=== PATIENT | female | born 1975 | race African-American/Black ===

== ENCOUNTER 2022-02-01 21:00 | Emergency (ER) | payer SELFPAY ==
[~2022-02-01] VITALS: Ht 162.6 cm; Wt 55.0 kg
[2022-02-01] MEDS ORDERED: TETANUS, DIPHTHERIA, PERTUSSIS VAC/PF 0.5ML (>10YR OLD) IM ONE (22:45)
[2022-02-01] MEDS ORDERED: SODIUM CHLORIDE 0.9% 1,000 ML IV ONE (22:45)
[2022-02-01] MEDS ORDERED: CEPHALEXIN 250MG CAPSULE PO ONE (22:45)
[2022-02-01] MEDS ORDERED: SULFAMETHOXAZOLE/TRIMETHOPRIM 800/160MG TABLET PO ONE (22:45)
[2022-02-01 23:47] LABS: BASOPHILS % 0.5 % (0.0-2.0); EOSINOPHILS % 0.9 % (0.0-5.0); HEMATOCRIT. 32.3 % (36.0-48.0); HEMOGLOBIN. 11.1 g/dL (12.0-16.0); LYMPHOCYTES % 35.6 % (20.0-50.0); MEAN CORPUSCULAR HEMOGLOBIN 30.8 pg (28.0-32.0); MEAN CORPUSCULAR VOLUME 89.5 fL (81.0-99.0); MEAN PLATELET VOLUME 8.2 fl (7.4-10.4); MONOCYTES % 8.2 % (2.0-8.0); NEUTROPHILS % 54.8 % (40.0-76.0); PLATELET 311 x1000/uL (130-400); RED BLOOD CELL COUNT 3.61 mill/uL (4.2-5.4); RED CELL DISTRIBUTION WIDTH 14.4 % (11.6-14.6)
[2022-02-02 00:06] LABS: CHLORIDE 109 mEq/L (98-107)
[2022-02-02] MEDS ORDERED: SULF1TAB48 MT (01:15)
[2022-02-02] MEDS ORDERED: CEPH500C2 MT (01:15)
[2022-02-02 02:10] VITALS: BP 110/62
== END 2022-02-02 02:13 | disposition home or self-care (01) ==
LOC: ER 21:00
DX: L03.311 Cellulitis of abdominal wall (principal); Z59.00 Homelessness unspecified; Z88.6 Allergy status to analgesic agent
CPT/HCPCS: 36415; 80053; 85025; 90715; 99283; J7030